=== PATIENT | female | born 1985 | race Hispanic/Latino ===

== ENCOUNTER 2018-07-21 12:12 | Emergency (ER) | payer MEDICAID | END 2018-07-21 12:56 | disposition home or self-care (01) | LOC: EDH 12:12 | DX: F41.9 Anxiety disorder, unspecified (principal); F31.9 Bipolar disorder, unspecified; Z88.8 Allergy status to other drugs, medicaments and biological substances; Z98.890 Other specified postprocedural states ==

== ENCOUNTER 2019-04-21 14:25 | Emergency (ER) | payer BC, MEDICAID, OTHER ==
[2019-04-21 14:59] LABS: BILIRUBIN,URINE Negative (NEGATIVE); COLOR,URINE Yellow (YELLOW); GLUCOSE, URINE (UA) Negative (NEGATIVE); KETONES,URINE Negative (NEGATIVE); LEUKOCYTE ESTERASE ,URINE Negative (NEGATIVE); NITRATE,URINE Negative (NEGATIVE); OCCULT BLOOD,URINE Negative (NEGATIVE); PROTEIN,URINE Negative (NEGATIVE)
[2019-04-21 15:02] LABS: HCG,QUAL RESULT NEGATIVE (NEGATIVE)
[2019-04-21 15:05] LABS: APPEARANCE,URINE CLEAR (CLEAR)
[2019-04-21 15:20] LABS: BASOPHILS % (AUTO) 0.1 % (0.0-5.0); EOSINOPHILS % (AUTO) 2.5 % (0.0-8.0); HEMATOCRIT 39.4 % (36-48); LYMPHOCYTES % (AUTO) 19.8 % (21.0-51.0); MEAN CORPUSCULAR HEMOGLOBIN 28.5 pg (27.0-33.0); MEAN CORPUSCULAR HGB CONC 33.8 g/dL (32.0-36.0); MEAN CORPUSCULAR VOLUME 84.4 fL (79-99); MONOCYTES % (AUTO) 5.8 % (3.0-13.0); NEUTROPHILS % (AUTO) 71.5 % (40.0-77.0); PLATELET COUNT (AUTO) 222 K/uL (130-400); RED BLOOD CELL COUNT(AUTO) 4.67 MIL/uL (4.00-5.50); RED CELL DISTRIBUTION WIDTH 13.2 % (11.0-15.5); WHITE BLOOD COUNT (AUTO) 7.1 K/uL (4.8-10.8)
[2019-04-21] MEDS ORDERED: KETOROLAC TROMETHAMINE 30MG/ML ONE (15:22)
[2019-04-21 15:29] LABS: CREATININE 0.6 mg/dL (0.5-1.5); POTASSIUM 3.6 mmol/L (3.5-5.1)
[2019-04-21 15:34] LABS: ALBUMIN 3.5 g/dL (3.5-5.0); BILIRUBIN,TOTAL 0.3 mg/dL (0.2-1.0); TOTAL PROTEIN, SERUM 7.8 g/dL (6.0-8.3)
== END 2019-04-21 16:12 | disposition home or self-care (01) ==
LOC: EDH 14:25
DX: K63.89 Other specified diseases of intestine (principal); F31.9 Bipolar disorder, unspecified; Z88.8 Allergy status to other drugs, medicaments and biological substances
CPT/HCPCS: 36415; 74176; 80053; 81003; 81025; 85025; 96372; 99284; J1885

== ENCOUNTER 2020-03-29 09:28 | Emergency (ER) | payer BC, OTHER ==
[2020-03-29 10:07] LABS: APPEARANCE,URINE Cloudy (CLEAR); BILIRUBIN,URINE Small (NEGATIVE); COLOR,URINE Dark Yellow (YELLOW); GLUCOSE, URINE (UA) Negative (NEGATIVE); KETONES,URINE 40 mg/dL (NEGATIVE); LEUKOCYTE ESTERASE ,URINE Large (NEGATIVE); NITRATE,URINE Negative (NEGATIVE); OCCULT BLOOD,URINE Negative (NEGATIVE); PROTEIN,URINE Trace mg/dL (NEGATIVE)
[2020-03-29 10:10] LABS: HCG,QUAL RESULT NEGATIVE (NEGATIVE)
[2020-03-29 10:15] LABS: AMPHET/METH SCREEN,URINE NEGATIVE (NEGATIVE); BARBITURATE SCREEN, URINE NEGATIVE (NEGATIVE); BENZODIAZEPINES SCREEN,URINE NEGATIVE (NEGATIVE); CANNABINOID SCREEN,URINE NEGATIVE (NEGATIVE); COCAINE SCREEN,URINE NEGATIVE (NEGATIVE); OPIATE SCREEN,URINE NEGATIVE (NEGATIVE); PHENCYCLIDINE SCREEN,URINE NEGATIVE (NEGATIVE)
[2020-03-29 10:16] LABS: BASOPHILS % (AUTO) 0.2 % (0.0-5.0); EOSINOPHILS % (AUTO) 0.5 % (0.0-8.0); HEMATOCRIT 45.1 % (36-48); LYMPHOCYTES % (AUTO) 23.3 % (21.0-51.0); MEAN CORPUSCULAR HEMOGLOBIN 27.6 pg (27.0-33.0); MEAN CORPUSCULAR HGB CONC 33.3 g/dL (32.0-36.0); MEAN CORPUSCULAR VOLUME 82.9 fL (79-99); MONOCYTES % (AUTO) 9.5 % (3.0-13.0); NEUTROPHILS % (AUTO) 66.3 % (40.0-77.0); PLATELET COUNT (AUTO) 191 K/uL (130-400); RED BLOOD CELL COUNT(AUTO) 5.44 MIL/uL (4.00-5.50); RED CELL DISTRIBUTION WIDTH 15.4 % (11.0-15.5)
[2020-03-29 10:19] LABS: RBC,URINE 0-1 /HPF (0-1); WBC,URINE 26-50 /HPF (0-1)
[2020-03-29 10:20] LABS: BACTERIA,URINE Moderate /HPF (None Seen)
[2020-03-29 10:32] LABS: CARBON DIOXIDE 27 mmol/L (21-32); CHLORIDE 103 mmol/L (101-111); CREATININE 0.8 mg/dL (0.5-1.5); GLOMERULAR FILTR. RATE CALC 88 mL/min (>60); GLUCOSE,RANDOM 123 mg/dL (70-105); SODIUM SERUM 140 mmol/L (136-145); UREA NITROGEN, BLOOD 11 mg/dL (7-18)
[2020-03-29 10:36] LABS: ALANINE AMINOTRANSFERASE 31 U/L (12-78); ALBUMIN 4.1 g/dL (3.5-5.0); ASPARTATE AMINOTRANSFERASE 20 U/L (10-37); BILIRUBIN,TOTAL 0.6 mg/dL (0.2-1.0); TOTAL PROTEIN, SERUM 8.7 g/dL (6.0-8.3)
[2020-03-29 10:37] LABS: ACETAMINOPHEN < 1 mcg/mL (10-30); ALCOHOL, BLOOD < 3 mg/dL (0-10); SALICYLATE < 2.8 mg/dL (2.8-20.0)
[2020-03-29] MEDS ORDERED: CEPHALEXIN 500 MG CAPSULE ONE (14:26)
[2020-03-30] MEDS ORDERED: CEPHALEXIN 500 MG CAPSULE ONE ×3 (04:51→17:54)
[2020-03-30] MEDS ORDERED: ACETAMINOPHEN EXTRA STRENGTH 500 MG TABLET ONE (17:54)
[2020-03-30 18:28] LABS: BASOPHILS % (AUTO) 0.3 % (0.0-5.0); EOSINOPHILS % (AUTO) 0.5 % (0.0-8.0); HEMATOCRIT 44.6 % (36-48); LYMPHOCYTES % (AUTO) 21.9 % (21.0-51.0); MEAN CORPUSCULAR HEMOGLOBIN 27.7 pg (27.0-33.0); MEAN CORPUSCULAR HGB CONC 33.2 g/dL (32.0-36.0); MEAN CORPUSCULAR VOLUME 83.4 fL (79-99); MONOCYTES % (AUTO) 11.5 % (3.0-13.0); NEUTROPHILS % (AUTO) 65.5 % (40.0-77.0); PLATELET COUNT (AUTO) 195 K/uL (130-400); RED BLOOD CELL COUNT(AUTO) 5.35 MIL/uL (4.00-5.50); RED CELL DISTRIBUTION WIDTH 15.5 % (11.0-15.5); WHITE BLOOD COUNT (AUTO) 7.8 K/uL (4.8-10.8)
[2020-03-30 18:43] LABS: CREATININE 0.7 mg/dL (0.5-1.5); POTASSIUM 3.8 mmol/L (3.5-5.1)
[2020-03-30 18:47] LABS: ACETAMINOPHEN < 1 mcg/mL (10-30); ALCOHOL, BLOOD 4 mg/dL (0-10); SALICYLATE < 2.8 mg/dL (2.8-20.0)
[2020-03-30 18:57] LABS: THYROID STIMULATING HORMONE 1.74 uIU/mL (0.36-3.74)
[2020-03-31] MEDS ORDERED: CEPHALEXIN 500 MG CAPSULE ONE (10:04)
== END 2020-03-31 12:30 | disposition short-term general hospital (02) ==
LOC: EDH 09:28
DX: G47.00 Insomnia, unspecified (principal); F41.9 Anxiety disorder, unspecified; F31.9 Bipolar disorder, unspecified; Z20.822 Contact with and (suspected) exposure to COVID-19; Z88.8 Allergy status to other drugs, medicaments and biological substances
CPT/HCPCS: 36415 ×2; 80053; 80164; 80305; 81001; 81025; 83605; 84443; 85025 ×2; 87088; 87426; 93005; 99285; C9803; G0481 ×2; U0003; 80048

== ENCOUNTER 2021-04-26 17:08 | Emergency (ER) | payer OTHER ==
[~2021-04-26] VITALS: Ht 165.1 cm; Wt 118.4 kg
[2021-04-26 17:37] LABS: APPEARANCE,URINE Cloudy (CLEAR); BILIRUBIN,URINE Negative (NEGATIVE); COLOR,URINE Yellow (YELLOW); GLUCOSE, URINE (UA) Negative (NEGATIVE); KETONES,URINE Negative (NEGATIVE); LEUKOCYTE ESTERASE ,URINE Small (NEGATIVE); NITRATE,URINE Negative (NEGATIVE); OCCULT BLOOD,URINE Negative (NEGATIVE); PH,URINE 5.5 (5.0-8.0); PROTEIN,URINE Trace mg/dL (NEGATIVE); UROBILINOGEN,URINE 0.2 mg/dL (0.2-1.0)
[2021-04-26 17:40] LABS: HCG,QUAL RESULT NEGATIVE (NEGATIVE)
[2021-04-26 17:42] LABS: BASOPHILS % (AUTO) 0.2 % (0.0-5.0); EOSINOPHILS % (AUTO) 1.4 % (0.0-8.0); HEMATOCRIT 41.1 % (36-48); LYMPHOCYTES % (AUTO) 17.8 % (21.0-51.0); MEAN CORPUSCULAR HEMOGLOBIN 28.5 pg (27.0-33.0); MEAN CORPUSCULAR HGB CONC 33.3 g/dL (32.0-36.0); MEAN CORPUSCULAR VOLUME 85.4 fL (79-99); MONOCYTES % (AUTO) 6.6 % (3.0-13.0); NEUTROPHILS % (AUTO) 73.8 % (40.0-77.0); PLATELET COUNT (AUTO) 244 K/uL (130-400); RED BLOOD CELL COUNT(AUTO) 4.81 MIL/uL (4.00-5.50); RED CELL DISTRIBUTION WIDTH 13.7 % (11.0-15.5); WHITE BLOOD COUNT (AUTO) 10.1 K/uL (4.8-10.8)
[2021-04-26 17:50] LABS: CARBON DIOXIDE 29 mmol/L (21-32); CHLORIDE 104 mmol/L (101-111); CREATININE 0.7 mg/dL (0.5-1.5); GLOMERULAR FILTR. RATE CALC 102 mL/min (>60); GLUCOSE,RANDOM 115 mg/dL (70-105); POTASSIUM 3.8 mmol/L (3.5-5.1); SODIUM SERUM 142 mmol/L (136-145); UREA NITROGEN, BLOOD 11 mg/dL (7-18)
[2021-04-26 17:53] LABS: BACTERIA,URINE Few /HPF (None Seen); RBC,URINE 0-1 /HPF (0-1); SQUAMOUS EPITHELIAL CELL,UR Moderate /HPF (0-2)
[2021-04-26 17:54] LABS: MUCUS,URINE Few LPF (None Seen)
[2021-04-26 17:55] LABS: ACETAMINOPHEN < 1 mcg/mL (10-30); ALANINE AMINOTRANSFERASE 29 U/L (12-78); ALBUMIN 3.9 g/dL (3.5-5.0); ALCOHOL, BLOOD < 3 mg/dL (0-10); ASPARTATE AMINOTRANSFERASE 18 U/L (10-37); BILIRUBIN,TOTAL 0.3 mg/dL (0.2-1.0); CREATINE KINASE, TOTAL 235 U/L (21-232); SALICYLATE < 2.8 mg/dL (2.8-20.0); TOTAL PROTEIN, SERUM 8.7 g/dL (6.0-8.3)
[2021-04-26 18:15] LABS: AMPHET/METH SCREEN,URINE NEGATIVE (NEGATIVE); BARBITURATE SCREEN, URINE NEGATIVE (NEGATIVE); BENZODIAZEPINES SCREEN,URINE NEGATIVE (NEGATIVE); CANNABINOID SCREEN,URINE NEGATIVE (NEGATIVE); COCAINE SCREEN,URINE NEGATIVE (NEGATIVE); OPIATE SCREEN,URINE NEGATIVE (NEGATIVE); PHENCYCLIDINE SCREEN,URINE NEGATIVE (NEGATIVE)
[2021-04-26 21:02] VITALS: BP 102/71
== END 2021-04-26 21:56 | disposition home or self-care (01) ==
LOC: EDH 17:08
DX: R44.3 Hallucinations, unspecified (principal); I10 Essential (primary) hypertension; F43.10 Post-traumatic stress disorder, unspecified; F03.90 Unspecified dementia, unspecified severity, without behavioral disturbance, psychotic disturbance, mood disturbance, and anxiety; Z98.890 Other specified postprocedural states; Z88.8 Allergy status to other drugs, medicaments and biological substances
CPT/HCPCS: 36415; 80053; 80178; 80305; 81001; 81025; 82550; 85025; 99283; G0481

== ENCOUNTER 2024-10-25 16:38 | Emergency (ER) | payer MEDICARE ==
[~2024-10-25] VITALS: Ht 167.6 cm; Wt 145.1 kg
--- NOTE | 2024-10-25 16:56 | NUR ---
pt was asked to give urine sample but states she is too hot, already voided and is not going to drink any more water. pt has been placed on 1:1. attempts are being being made to remove pts belongings with parents cooperation but pt is resistant.
--- NOTE | 2024-10-25 16:57 | NUR ---
pt presents with disorganized, disordered thoughts. grandiose thoughts. pt makes statements of persecution and paranoia. when asked about suicidal ideations pt states "yes i am suicidal, i do want to commit suicide." when asked about her plan she states "my plan is deliverance". pt was asked to clarify multiple times. but continues to state that her suicide plan is deliverance. pt states she is also homicidal. when asked agains who, pt states she is homicidal against "everybody that sins"
[2024-10-25 17:22] LABS: IMMATURE GRANULOCYTE ABSOLUTE 0.01 K/uL (0-1); NUCLEATED RED BLOOD CELLS 0.0 % (0.0-0.19); PLATELET COUNT (AUTO) 181 K/uL (130-400); RED BLOOD CELL COUNT(AUTO) 4.65 MIL/uL (4.00-5.50); RED CELL DISTRIBUTION WIDTH 13.8 % (11.0-15.5); WHITE BLOOD COUNT (AUTO) 5.8 K/uL (4.8-10.8)
[2024-10-25 17:29] LABS: CREATININE 0.7 mg/dL (0.5-1.0); GLOMERULAR FILTR. RATE CALC 114 mL/min (>90); GLUCOSE,RANDOM 169 mg/dL (70-105); SODIUM SERUM 135 mmol/L (136-145); UREA NITROGEN, BLOOD 5 mg/dL (7-18)
[2024-10-25 17:33] LABS: ALCOHOL, BLOOD < 3 mg/dL (0-10)
--- NOTE | 2024-10-25 17:34 | NUR ---
pts lanyard was removed, pts scarf was placed around her waist as she adamantly refuses to part with it despite encouragement from parent and staff.
[2024-10-25] MEDS: HALOPERIDOL INJ 5 MG/ML VIAL IM STA (18:09)
--- NOTE | 2024-10-25 18:39 | ERN ---
ED Note History of Present Illness Stated Complaint: MENTAL BREAKDOWN Chief Complaint: Psych Evaluation Time Seen by MD: 17:02 Time Seen by Midlevel: 17:05 Dictation: 39-YEAR-OLD FEMALE WITH A HISTORY OF SCHIZOPHRENIA DEPRESSION BROUGHT IN [facility] FOR SUICIDAL HOMICIDAL IDEATIONS. ACCORDING TO THE MOTHER PATIENT HAS NOT TAKEN HER HOME MEDICATIONS IN THE LAST COUPLE OF WEEKS HOWEVER SHE IS UNSURE OF WHEN SHE BECAME SUICIDAL THEY DO NOT LIVE TOGETHER. UPON MY ASSESSMENT OF THE I INTERVIEWED THE PATIENT, I ASKED HER IF SHE WAS SUICIDAL OR HOMICIDAL PATIENT SAID YES. WHEN ASKED HER TO DESCRIBE ANY PLANS, SHE SAYS SHE DOES NOT WANT TO TALK TO ME ABOUT IT. Allergies: Coded Allergies: sertraline (Unverified Allergy, Unknown, 07/21/18) Past Medical History Past Medical History: Anxiety, Depression, Schizophrenia Additional Past Medical Hx: PTSD, DEMENTIA Surgical History: Unknown Surgical History Other: HERNIA REPAIR Review of System Dictation CONSTITUTIONAL: NEGATIVE FOR FEVER,CHILLS, AND WEIGHT LOSS EYES: NEGATIVE FOR INJURY, PAIN,REDNESS, AND DISCHARGE ENT: NEGATIVE FOR INJURY,PAIN OR SWELLING CARDIOVASCULAR: NEGATIVE FOR CHEST PAIN, PALPITATIONS, AND EDEMA RESPIRATORY: NEGATIVE FOR SHORTNESS OF BREATH, COUGH, AND WHEEZING, ABDOMEN/GI: NEGATIVE FOR ABDOMINAL PAIN, NAUSEA, VOMITING, DIARRHEA, AND CONSTIPATION BACK: NEGATIVE FOR INJURY AND PAIN : NEGATIVE FOR INJURY, BLEEDING AND DISCHARGE MS/EXTREMITY: NEGATIVE FOR INJURY AND DEFORMITY SKIN: NEGATIVE FOR RASH, AND DISCOLORATION NEURO: NEGATIVE FOR HEADACHE, WEAKNESS, NUMBNESS, TINGLING, AND SEIZURE PSYCH: POSITIVE FOR SUICIDAL HOMICIDAL IDEATION Initial Vital Sign VS Vital Signs Date Time Temp Pulse Resp B/P (MAP) Pulse Ox O2 Delivery O2 Flow Rate FiO2 10/25/24 16:40 98.2 85 18 151/80 99 Room Air 0 10/25/24 17:00 21 Physical Exam Dictation GENERAL: AWAKE, ALERT, NAD HEAD/FACE: NORMOCEPHALIC, ATRAUMATIC EYES: PERRL, EOMI, VISION AT BASELINE ENT: ORAL CAVITY CLEAR, TMS CLEAR, NO SIGNS OF INFECTION NECK: TRACHEA MIDLINE, SUPPLE, NO NUCHAL RIGIDITY CARDIOVASCULAR: RRR, NORMAL S1/S2, NO MRGS, NO JVD RESPIRATORY: CTAB, NO RESPIRATORY DISTRESS, NO RALES OR WHEEZES ABDOMEN: SOFT, NON-TENDER, NON-DISTENDED, NORMAL BOWEL SOUNDS, NO GUARDING OR REBOUND. SKIN: WARM, DRY, NORMAL TURGOR, NO RASH MS/EXTREMITY: PULSES EQUAL, NO CYANOSIS, NEUROVASCULAR INTACT, FROM NEURO: COAX4, GCS 15, STRENGTH 5/5, CN 2-12 INTACT, NORMAL CEREBELLAR EXAM, N ORMAL GAIT, PSYCH: NORMAL BEHAVIOR, MOOD, AND AFFECT NORMAL Results (Laboratory/Radiology) Laboratory/Radiology Laboratory Tests Test 10/25/24 17:16 10/25/24 22:05 White Blood Count 5.8 K/uL (4.8-10.8) Red Blood Count 4.65 MIL/uL (4.00-5.50) Hemoglobin 13.6 g/dL (12.0-16.0) Hematocrit 40.1 % (36-48) Mean Corpuscular Volume 86.2 fL (79-99) Mean Corpuscular Hemoglobin 29.2 pg (27.0-33.0) Mean Corpuscular Hemoglobin Concent 33.9 g/dL (32.0-36.0) Red Cell Distribution Width 13.8 % (11.0-15.5) Platelet Count 181 K/uL (130-400) Mean Platelet Volume 11.4 fL (7.5-10.5) H Immature Granulocyte % (Auto) 0.2 % (0-1) Neutrophils (%) (Auto) 64.7 % (40.0-77.0) Lymphocytes (%) (Auto) 25.8 % (21.0-51.0) Monocytes (%) (Auto) 5.5 % (3.0-13.0) Eosinophils (%) (Auto) 3.5 % (0.0-8.0) Basophils (%) (Auto) 0.3 % (0.0-5.0) Neutrophils # (Auto) 3.7 K/uL (1.8-7.7) Lymphocytes # (Auto) 1.5 K/uL (1.0-4.8) Monocytes # (Auto) 0.3 K/uL (0.1-1.0) Eosinophils # (Auto) 0.20 K/uL (0.00-0.70) Basophils # (Auto) 0.02 K/uL (0.00-0.20) Absolute Immature Granulocyte (auto 0.01 K/uL (0-1) Nucleated Red Blood Cells 0.0 % (0.0-0.19) Sodium Level 135 mmol/L (136-145) L Potassium Level 3.2 mmol/L (3.5-5.1) L Chloride Level 97 mmol/L (101-111) L Carbon Dioxide Level 29 mmol/L (21-32) Blood Urea Nitrogen 5 mg/dL (7-18) L Creatinine 0.7 mg/dL (0.5-1.0) Glomerular Filtration Rate Calc 114 mL/min (>90) Random Glucose 169 mg/dL (70-105) H Total Calcium 8.7 mg/dL (8.5-10.1) Serum Test, Qualitative NEGATIVE (NEGATIVE) Salicylates Level < 2.8 mg/dL (2.8-20.0) L Acetaminophen Level < 1 mcg/mL (10-30) L Serum Alcohol < 3 mg/dL (0-10) Urine Opiates Screen NEGATIVE (NEGATIVE) Urine Barbiturates Screen NEGATIVE (NEGATIVE) Urine Phencyclidine Screen NEGATIVE (NEGATIVE) Urine Amphetamines Screen NEGATIVE (NEGATIVE) Urine Benzodiazepines Screen NEGATIVE (NEGATIVE) Urine Cocaine Screen NEGATIVE (NEGATIVE) Urine Marijuana (THC) Screen NEGATIVE (NEGATIVE) Labs Reviewed?: Yes ED Course ED Course Orders Procedure Category Date Status Time Vital Signs Per CPOE 10/25/24 Transmitted Routine 16:58 Cardiac Monitoring CPOE 10/25/24 Transmitted 16:58 Pulse Ox(Continuous) RT 10/25/24 Transmitted 16:58 Bedside Glucose CPOE 10/25/24 Transmitted Fingerstick 16:58 Suicide Precautions CPOE 10/25/24 Transmitted 16:58 Cath If Unable To CPOE 10/25/24 Transmitted Void In 6hr 16:58 Saline Lock Iv CPOE 10/25/24 Transmitted 16:58 Cbc With Differential LAB 10/25/24 Complete 16:58 Alcohol, Blood LAB 10/25/24 Complete 16:58 Salicylate LAB 10/25/24 Complete 16:58 Acetaminophen LAB 10/25/24 Complete 16:58 Testing, LAB 10/25/24 Complete Serum Hcg 16:58 Basic Metabolic Panel LAB 10/25/24 Complete 16:58 Drug Screen Urine LAB 10/25/24 Complete 16:58 Haloperidol Inj PHA 10/25/24 Complete (Haldol Inj) 17:54 Potassium Bicarb/Cit PHA 10/25/24 Complete Ac 25meq (K-Lyte Ta 20:30 Current Medications Medications (Trade) Dose Ordered Sig/Sarai Route PRN Reason Start Time Stop Time Status Last Admin Dose Admin Haloperidol Lactate (Haldol Inj) 5 mg ONCE STAT IM 10/25/24 17:54 10/25/24 17:58 DC 10/25/24 18:09 Potassium Bicarbonate (K-Lyte Tablet Eff 25 Meq Tablet.eff) 25 meq ONCE ONCE PO 10/25/24 20:30 10/25/24 20:31 DC 10/25/24 20:28 Vital Signs Date Time Temp Pulse Resp B/P (MAP) Pulse Ox O2 Delivery O2 Flow Rate FiO2 10/25/24 20:00 98.2 87 20 159/94 97 Room Air* 0 21 10/25/24 17:00 98.2 88 18 155/86 99 Room Air* 0 21 10/25/24 16:40 98.2 85 18 151/80 99 Room Air 0 Medical Decision Making MDM MDM: Differential diagnosis: Suicide ideation, homicidal ideation Rationale: Tests considered and ordered secondary to shared decision making include: Previous outside records reviewed: Old ER visits. Risk of complication and/or morbidity or mortality of patient management: None Medications-Per medication reconciliation Need for hospitalization: Patient does meet criteria for hospitalization. Need for emergency major/minor surgery: No There are no social concerns with this patient. Prescription drug management Prescriptions will include symptomatic care Patient's prior external medical records from other ER visits were reviewed by me as indicated. Prior testing and results from previous visits were reviewed. Prior tests were taken into account with medical decision making and resource utilization, independent historian/historians were used to obtain complete medical history. I independently interpreted the test that were performed, results were reviewed by me and considered findings on radiology if ordered. Medical management and examination interpretation discussions were had by me with other qualified healthcare professionals as indicated for the patient's care. DX & DISP Disposition: Inpatient Departure Impression: Primary Impression: Psychiatric problem Additional Impression: Homicidal ideation Condition: Stable Referrals: FRANK OLGUIN PA-C (PCP) I have reviewed the case, and I agree with, Diagnosis and Plan I performed the substantive portion of the visit. I have reviewed and personall y made and approve the management plan that is documented in the note by myself or the ELANA. I acknowledge for responsibility for the patient's management plan. BLAINE ODRMAN DEPUTY CHIEF MAGISTRATE Oct 25, 2024 18:39 GAURAV TAMAYO Oct 26, 2024 02:23
--- NOTE | 2024-10-25 20:25 | NUR ---
[facility]
[2024-10-25 22:27] LABS: AMPHET/METH SCREEN,URINE NEGATIVE (NEGATIVE); BARBITURATE SCREEN, URINE NEGATIVE (NEGATIVE); CANNABINOID SCREEN,URINE NEGATIVE (NEGATIVE); COCAINE SCREEN,URINE NEGATIVE (NEGATIVE)
--- NOTE | 2024-10-25 22:38 | NUR ---
SCREENER AT BEDSIDE, SPOKE TO PT AND PTS MOTHER. STATES THAT SHE WILL WORK ON PTS PLACEMENT SHE FEELS THAT PT MEETS CRITERIA TODAY
--- NOTE | 2024-10-26 00:10 | NUR ---
SCREENER FOR [facility] THEY ARE ATTEMPTING TO PLACE IN [place], BUT IT WILL NOT BE POSSIBLE UNTIL THE MORNING. THEY WILL BE BACK IN THE MORNING AFTER 8 AM.
--- NOTE | 2024-10-26 00:58 | NUR ---
PATIENT EYES CLOSED, RESTING, NO DISTRESS NOTED, SITTER AT BEDSIDE.
--- NOTE | 2024-10-26 05:27 | NUR ---
ASSUMED PATIENT CARE AT THIS TIME, PATIENT IS SLEEPING, NO DISTRESS NOTED
--- NOTE | 2024-10-26 10:51 | NUR ---
TIMOTHY TROPICAL SCREENER AT BEDSIDE TO RESCREEN PATIENT./SARAH
--- NOTE | 2024-10-26 13:19 | NUR ---
REPORT GIVEN TO STTIFFANIE RN ON PATIENT, NO QUESTIONS ASKED AT THIS./SARAH
[2024-10-26 14:49] VITALS: BP 124/71; PULSE 73; RESP 18; TEMP 98.4; O2SAT 97
== END 2024-10-26 14:51 ==
LOC: EDH 16:38
DX: F99 Mental disorder, not otherwise specified (principal); R45.850 Homicidal ideations; F41.9 Anxiety disorder, unspecified; F03.90 Unspecified dementia, unspecified severity, without behavioral disturbance, psychotic disturbance, mood disturbance, and anxiety; F20.9 Schizophrenia, unspecified; Z98.890 Other specified postprocedural states
CPT/HCPCS: 99285; 80048; 80305; 84703; 85025; 82948; 36415; 96372; G0481; J1630

== ENCOUNTER 2024-11-15 00:46 | Emergency (ER) | payer SELFPAY ==
[~2024-11-15] VITALS: Ht 154.9 cm; Wt 136.1 kg
[2024-11-15 01:06] LABS: IMMATURE GRANULOCYTE ABSOLUTE 0.03 K/uL (0-1); NUCLEATED RED BLOOD CELLS 0.0 % (0.0-0.19); PLATELET COUNT (AUTO) 224 K/uL (130-400); RED BLOOD CELL COUNT(AUTO) 4.18 MIL/uL (4.00-5.50); RED CELL DISTRIBUTION WIDTH 13.9 % (11.0-15.5); WHITE BLOOD COUNT (AUTO) 10.3 K/uL (4.8-10.8)
[2024-11-15 01:09] LABS: ADD UA MICROSCOPIC YES; APPEARANCE,URINE CLEAR (CLEAR); GLUCOSE, URINE (UA) 300 mg/dL (NEGATIVE); LEUKOCYTE ESTERASE ,URINE NEGATIVE Leu/uL (NEGATIVE); NITRATE,URINE NEGATIVE (NEGATIVE); OCCULT BLOOD,URINE NEGATIVE (NEGATIVE)
[2024-11-15 01:11] LABS: SQUAMOUS EPITHELIAL CELL,UR FEW /HPF (0-2)
[2024-11-15 01:16] LABS: CREATININE 0.6 mg/dL (0.5-1.0); GLOMERULAR FILTR. RATE CALC 118.0 mL/min (>90); GLUCOSE,RANDOM 262.0 mg/dL (70-105); SODIUM SERUM 138.0 mmol/L (136-145); UREA NITROGEN, BLOOD 8.0 mg/dL (7-18)
[2024-11-15 01:17] LABS: AMPHET/METH SCREEN,URINE NEGATIVE (NEGATIVE); BARBITURATE SCREEN, URINE NEGATIVE (NEGATIVE); CANNABINOID SCREEN,URINE NEGATIVE (NEGATIVE); COCAINE SCREEN,URINE NEGATIVE (NEGATIVE)
--- NOTE | 2024-11-15 01:18 | EKG ---
[facility] Test Date: 2024-11-15 Test Time: 01:12:02 Pat Name: PABLITO GARCIA Department: [facility] Room: Gender: F [employer]: [id number] : 1985 Requested By: MITZY BENNETT Order Number: [id number] Reading MD: Mihir Elizabeth Measurements Intervals [place] Rate: 80 P: 20 MI: 162 QRS: -8 QRSD: 101 T: 57 QT: 427 QTc: 492 Interpretive Statements Sinus rhythm Compared to ECG 03/29/2020 10:10:07 Sinus tachycardia no longer present Right superior axis no longer present Myocardial infarct finding no longer present Electronically Signed On 11-15-2024 14:22:30 CDT by Mihir Elizabeth Please click the below link to view image of tracing.
[2024-11-15 01:21] LABS: CREATINE KINASE, TOTAL 222.0 U/L (21-232)
--- NOTE | 2024-11-15 01:26 | ERN ---
General Chief Complaint: Chest Pain Stated Complaint: CP, N/V/D Time Seen by MD: 00:53 Source: patient History of Present Illness Initial Comments 39-year-old female with past medical history of mental breakdowns, suicidal ideation, visual hallucinations. She comes in today complaining of burning pain in her throat and she points to her manubrium. She also states that she would like me to fix her entire body. Allergies: Coded Allergies: sertraline (Unverified Allergy, Unknown, 07/21/18) Past Medical History Past Medical History: Anxiety, Depression, Diabetes-Type II, High Cholesterol, Hypertension, Schizophrenia Medical History Other: PTSD, DEMENTIA Past Surgical History: Cholecystectomy, Unknown Surgical History Other: HERNIA REPAIR Constitutional: (-) chills, (-) diaphoresis, (-) fever, (-) malaise, (-) weakness, (-) other documentation EENTM: (-) eye pain, (-) blurred vision, (-) tearing, (-) double vision, (-) ear pain, (-) ear discharge, (-) nose pain, (-) nose congestion, (-) throat pain, (-) Throat swelling, (-) mouth pain, (-) tooth pain, (-) mouth swelling, (-) other documentation Respiratory: (-) cough, (-) orthopnea, (-) short of breath, (-) stridor, (-) wheezing, (-) other documentation Cardiovascular: (+) chest pain Gastrointestinal/Abdominal: (-) nausea, (-) vomiting, (-) diarrhea, (-) abdominal pain, (-) abdominal distention, (-) constipation, (-) rectal bleeding, (-) dark stool/melena, (-) other documentation Genitourinary: (-) vaginal discharge, (-) vaginal bleeding, (-) dysuria, (-) frequency, (-) hematuria, (-) pain, (-) other documentation Musculoskeletal: (-) Neck pain, (-) back pain, (-) Flank Pain, (-) joint pain, (-) joint swelling, (-) muscle pain, (-) muscle stiffness, (-) gout, (-) other d ocumentation Physical Exam General Appearance: (+) no apparent distress Orientation: (+) alert Head/Face Trauma: No Eye: bilateral eye normal inspection, bilateral eye PERRL, bilateral eye EOMI Ear, Nose, Throat: (+) hearing grossly normal, (+) normal ENT inspection, (+) moist mucous membraine Neck: (+) normal inspection, (+) supple, (+) no JVD Respiratory: (+) chest non-tender, (+) lungs clear Heart: (+) regular, (+) no gallop Vascular: (+) no edema Gastrointestinal: (+) soft, (+) non-tender, (+) bowel sound present Extremities Comment Left anterior fremin has a skin lesion that looks like calciphylaxis or psoriasis. It has been there for two years. No Cellulitis Neurologic/Psychiatric: (+) normal speech Results Laboratory and Microbiology Lab and Micro Result Laboratory Tests Test 11/15/24 00:57 White Blood Count 10.3 K/uL (4.8-10.8) Red Blood Count 4.18 MIL/uL (4.00-5.50) Hemoglobin 12.4 g/dL (12.0-16.0) Hematocrit 36.6 % (36-48) Mean Corpuscular Volume 87.6 fL (79-99) Mean Corpuscular Hemoglobin 29.7 pg (27.0-33.0) Mean Corpuscular Hemoglobin Concent 33.9 g/dL (32.0-36.0) Red Cell Distribution Width 13.9 % (11.0-15.5) Platelet Count 224 K/uL (130-400) Mean Platelet Volume 11.2 fL (7.5-10.5) H Immature Granulocyte % (Auto) 0.3 % (0-1) Neutrophils (%) (Auto) 76.5 % (40.0-77.0) Lymphocytes (%) (Auto) 15.9 % (21.0-51.0) L Monocytes (%) (Auto) 4.0 % (3.0-13.0) Eosinophils (%) (Auto) 3.2 % (0.0-8.0) Basophils (%) (Auto) 0.1 % (0.0-5.0) Neutrophils # (Auto) 7.9 K/uL (1.8-7.7) H Lymphocytes # (Auto) 1.6 K/uL (1.0-4.8) Monocytes # (Auto) 0.4 K/uL (0.1-1.0) Eosinophils # (Auto) 0.33 K/uL (0.00-0.70) Basophils # (Auto) 0.01 K/uL (0.00-0.20) Absolute Immature Granulocyte (auto 0.03 K/uL (0-1) Nucleated Red Blood Cells 0.0 % (0.0-0.19) Urine Color COLORLESS (YELLOW) Urine Appearance CLEAR (CLEAR) Urine pH 7.0 (5.0-8.0) Urine Specific [place] 1.004 (1.001-1.031) Urine Protein NEGATIVE mg/dL (NEGATIVE) Urine Glucose (UA) 300 mg/dL (NEGATIVE) H Urine Ketones NEGATIVE mg/dL (NEGATIVE) Urine Occult Blood NEGATIVE (NEGATIVE) Urine Nitrate NEGATIVE (NEGATIVE) Urine Bilirubin NEGATIVE mg/dL (NEGATIVE) Urine Urobilinogen 0.2 mg/dL (0.2-1.0) Urine Leukocyte Esterase NEGATIVE Nurys/uL Urine RBC 0-1 /HPF (0-1) Urine WBC 0-1 /HPF (0-1) Urine Squamous Epithelial Cells FEW /HPF (0-2) Urine Bacteria RARE /HPF (None Seen) Sodium Level 138 mmol/L (136-145) Potassium Level 3.9 mmol/L (3.5-5.1) Chloride Level 101 mmol/L (101-111) Carbon Dioxide Level 27 mmol/L (21-32) Blood Urea Nitrogen 8 mg/dL (7-18) Creatinine 0.6 mg/dL (0.5-1.0) Glomerular Filtration Rate Calc 118 mL/min (>90) Random Glucose 262 mg/dL (70-105) H Total Calcium 8.5 mg/dL (8.5-10.1) Total Creatine Kinase 222 U/L (21-232) Troponin I High Sensitivity 5 ng/L (4-50) Urine Opiates Screen NEGATIVE (NEGATIVE) Urine Barbiturates Screen NEGATIVE (NEGATIVE) Urine Phencyclidine Screen NEGATIVE (NEGATIVE) Urine Amphetamines Screen NEGATIVE (NEGATIVE) Urine Benzodiazepines Screen NEGATIVE (NEGATIVE) Urine Cocaine Screen NEGATIVE (NEGATIVE) Urine Marijuana (THC) Screen NEGATIVE (NEGATIVE) MDM MDM: Differential diagnosis: GERD, anxiety, doubt acute RI, cricopharyngeal hypertrophy, glottis hystericus, esophagitis Rationale: Tests considered and ordered secondary to shared decision making include: Previous outside records reviewed: Old ER visits. Risk of complication and/or morbidity or mortality of patient management: None Medications-Per medication reconciliation Need for hospitalization: Patient does meet criteria for hospitalization. Need for emergency major/minor surgery: No There are no social concerns with this patient. Prescription drug management Prescriptions will include symptomatic care Patient's prior external medical records from other ER visits were reviewed by me as indicated. Prior testing and results from previous visits were reviewed. Prior tests were taken into account with medical decision making and resource utilization, independent historian/historians were used to obtain complete medical history. I independently interpreted the test that were performed, results were reviewed by me and considered findings on radiology if ordered. Patient's EKG short normal sinus rhythm with no ischemic changes. Chemistry panel was normal except for hyperglycemia and a mild elevation of CK. Cardiac enzymes are normal and CBC were both normal. UA was also normal except for a high amount of glucosuria. Patient's symptoms were completely relieved with a GI cocktail. ED Course Orders Procedure Category Date Status Time Vital Signs Per CPOE 11/15/24 Transmitted Routine 00:49 Chest 1vw RAD 11/15/24 Taken 00:49 12 Lead Ekg Tracing- EKG 11/15/24 Complete Technical 00:49 Oxygen By Nc/Pulse Ox CPOE 11/15/24 Transmitted 00:49 Maintain Iv CPOE 11/15/24 Transmitted 00:49 Iv Insertion CPOE 11/15/24 Transmitted 00:49 Cardiac Monitoring CPOE 11/15/24 Transmitted 00:49 Pulse Oximetry With CPOE 11/15/24 Transmitted Vs And Prn 00:49 Cbc With Differential LAB 11/15/24 Complete 00:49 Activity: Br W/Brp CPOE 11/15/24 Transmitted With Assist 00:49 Creatine Kinase, Total LAB 11/15/24 Complete 00:49 Troponin I High LAB 11/15/24 Complete Sensitivity 00:49 Urinalysis Profile LAB 11/15/24 Complete 00:49 Basic Metabolic Panel LAB 11/15/24 Complete 00:49 Drug Screen Urine LAB 11/15/24 Complete 00:56 Lidocaine Hcl 2% PHA 11/15/24 Complete Viscous (Lidocaine Hcl 01:30 Mag/Alum/Simeth 30ml PHA 11/15/24 Complete (Maalox Plus 30ml) 01:30 Dicyclomine Hcl PHA 10/5/25 Complete (Bentyl 10mg/5ml 01:30 Acetaminophen 500mg PHA 11/15/24 Complete Tab (Tylenol 500mg T 01:34 Current Medications Medications (Trade) Dose Ordered Sig/Sarai Route PRN Reason Start Time Stop Time Status Last Admin Dose Admin Acetaminophen (TYLenol 500MG TAB) 500 mg STK-MED ONCE .ROUTE 11/15/24 01:34 11/15/24 01:35 DC Al Hydroxide/Mg Hydroxide (MAALox PLUS 30ML) 30 ml ONCE ONCE PO 11/15/24 01:30 11/15/24 01:31 DC 11/15/24 01:40 Dicyclomine HCl (Bentyl 10mg/5ml Syrup) 10 mg ONCE ONCE PO 11/15/24 01:30 11/15/24 01:31 DC 11/15/24 01:40 Lidocaine HCl (Lidocaine HCl 2% Viscous) 10 ml ONCE ONCE PO 11/15/24 01:30 11/15/24 01:31 DC 11/15/24 01:40 Vital Signs Date Time Temp Pulse Resp B/P (MAP) Pulse Ox O2 Delivery O2 Flow Rate FiO2 11/15/24 01:02 98.4 84 18 136/67 98 Room Air* 0 21 11/15/24 00:47 98.1 79 18 128/70 97 Room Air DX & DISP Disposition: Discharge Departure Impression: Primary Impression: GERD (gastroesophageal reflux disease) Condition: Stable Additional Instructions: You came in with symptoms of a acid reflux and you feel better with the medicine I gave you. It is safe to go home. Please go to a drug store and buy some antacids such as Pepcid or omeprazole. Referrals: FRANK OLGUIN PA-C (PCP) MITZY BENNETT MD Nov 15, 2024 01:26
[2024-11-15] MEDS: DICYCLOMINE HCL 10 MG/5 ML ML PO ONE (01:40)
[2024-11-15] MEDS: MAG/ALUM/SIMETH 30 ML UDCUP PO ONE (01:40)
[2024-11-15] MEDS: LIDOCAINE HCL 2% VISCOUS 15 ML UDCUP PO ONE (01:40)
--- NOTE | 2024-11-15 02:32 | HMCIMG ---
EXAM: CR Chest, 1 View. CLINICAL HISTORY: Chest pain. COMPARISON: None provided. FINDINGS: LUNGS: Suspicion of small patchy infiltrates in the bilateral lung manzano. Bilateral vascular congestion. PLEURAL SPACES: No pleural effusion or pneumothorax. MEDIASTINUM: Cardiac size cannot be commented on due to expiratory and rotated views. BONES: No acute osseous abnormality. IMPRESSION: Suspicion of small patchy infiltrates in the bilateral lung manzano. Bilateral vascular congestion. Clinical correlation and further evaluation with follow-up are suggested. /[place]
[2024-11-15 02:38] VITALS: BP 125/68; PULSE 80; RESP 18; TEMP 98.2; O2SAT 98
== END 2024-11-15 02:39 | disposition home or self-care (01) ==
LOC: EDH 00:46
DX: K21.9 Gastro-esophageal reflux disease without esophagitis (principal); E11.9 Type 2 diabetes mellitus without complications; E78.00 Pure hypercholesterolemia, unspecified; F03.90 Unspecified dementia, unspecified severity, without behavioral disturbance, psychotic disturbance, mood disturbance, and anxiety; F20.9 Schizophrenia, unspecified; I10 Essential (primary) hypertension; Z90.49 Acquired absence of other specified parts of digestive tract; Z98.890 Other specified postprocedural states
CPT/HCPCS: 36415; 71045; 80048; 80305; 81001; 82550; 84484; 85025; 93005; 99285